=== PATIENT | male | born 1985 | race Two or more races ===

== ENCOUNTER 2017-12-25 00:54 | Emergency (ER) | payer SELFPAY ==
[~2017-12-25] VITALS: Ht 154.9 cm; Wt 74.8 kg
--- NOTE | 2017-12-25 01:14 | Emergency Room Report ---
History of Present Illness General Chief Complaint: Alcohol Intoxication Source: Patient, EMS Present Illness HPI This is a 32-year-old male who called [place] parking lot because he felt weak and nauseous. He has been drinking tonight. Denies any fever chills but denies any diarrhea. [place] spasm in his chest. Similar symptom in the past. Denies any other complaint. Allergies: Coded Allergies: No Known Allergies (Unverified , 12/25/17) Patient History Past Medical History: see triage record, old chart reviewed Past Surgical History: other Pertinent Family History: none Social History: Reports: alcohol use Immunizations: other Reviewed Nursing Documentation: PMH: Agreed; PSxH: Agreed Nursing Documentation-PMH Past Medical History: No History, Except For Hx Hypertension: Yes Review of Systems Eye: Denies: eye pain, blurred vision ENT: Denies: ear pain, nose congestion, throat swelling Respiratory: Denies: cough, shortness of breath Cardiovascular: Denies: chest pain, palpitations Gastrointestinal: Reports: nausea; Denies: abdominal pain, diarrhea, vomiting Musculoskeletal: Denies: back pain, joint pain Skin: Denies: rash Neurological: Denies: headache, numbness Endocrine: Denies: increased thirst, increased urine Hematologic/Lymphatic: Denies: easy bruising All Other Systems: negative except mentioned in HPI Physical Exam Vital Signs Date Time Temp Pulse Resp B/P (MAP) Pulse Ox O2 Delivery O2 Flow Rate FiO2 12/25/17 00:48 98.2 93 16 142/97 98 Room Air 98.2 vitals unremarkable Sp02 EP Interpretation: reviewed, normal General Appearance: well appearing, no apparent distress, other - Intoxicated Head: normocephalic, atraumatic Eyes: bilateral eye PERRL, bilateral eye EOMI ENT: hearing grossly normal, normal pharynx Neck: full range of motion, supple, no meningismus Respiratory: chest non-tender, lungs clear, normal breath sounds Cardiovascular #1: regular rate, rhythm, no murmur Gastrointestinal: normal bowel sounds, non tender, no mass, no organomegaly, no bruit, non-distended Musculoskeletal: back normal, normal range of motion Neurologic: alert, oriented x3 Psychiatric: depressed affect Skin: warm/dry Medical Decision Making Diagnostic Impression: Primary Impression: Acute alcoholic intoxication Qualified Codes: F10.929 - Alcohol use, unspecified with intoxication, unspecified ER Course Patient presents with alcohol intoxication. No suicidal thought homicidal thought. No injury to warrant x-ray or CT scan. We'll discharge home. Last Vital Signs Date Time Temp Pulse Resp B/P (MAP) Pulse Ox O2 Delivery O2 Flow Rate FiO2 12/25/17 00:48 98.2 93 16 142/97 98 Room Air 98.2 Status: improved Disposition: HOME, SELF-CARE Condition: Stable Patient Instructions: Alcohol Intoxication, [id number] Additional Instructions: Stop using alcohol. Follow-up your doctor in 7 days. Go to rehabilitation. Return if worse. THIAGO THORNE M.D. Dec 25, 2017 01:14
[2017-12-25 01:38] VITALS: BP 136/80
[2017-12-25 02:54] VITALS: BP 0/0
== END 2017-12-25 02:54 | disposition home or self-care (01) ==
LOC: EDBD 00:54 → EMR 01:30
DX: F10.929 Alcohol use, unspecified with intoxication, unspecified (principal)
CPT/HCPCS: 99284